=== PATIENT | female | born 1985 | race African-American/Black ===

== ENCOUNTER 2017-11-01 20:41 | Emergency (ER) | payer OTHER ==
[~2017-11-01] VITALS: Ht 170.2 cm; Wt 136.1 kg
[~2017-11-01 20:41] MED LIST: CLEOCIN HCL300 MG PO; CYCLOBENZAPRINE10 M1 PO; MOTRIN800 MG PO; NAPROSYN500 M1 PO; PROAIR HFA8.5 GM INH; TYLENOL WITH C1 EACH PO; ZOFRAN ODT4 MG PO
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
--- NOTE | 2017-11-01 23:32 | CT SCAN REPORT ---
EXAMINATION: CT CERVICAL SPINE WITHOUT CONTRAST CLINICAL INFORMATION: Neck pain. COMPARISON: None. TECHNIQUE: Contiguous helical images of the cervical spine were obtained without IV contrast. Multiplanar reconstructions were performed. FINDINGS: The cervical vertebra are in normal alignment. There is quite minimal disc height loss at C5/C6 with mild anterior osteophyte formation Disc heights and vertebral heights are otherwise well-preserved. There are no fractures. There is no prevertebral soft tissue swelling. There is no cervical lymphadenopathy. The visualized base of the brain is unremarkable. The visualized lung apices are clear. IMPRESSION: No evidence for acute injury to the cervical spine.
--- NOTE | 2017-11-02 | RADIOLOGY REPORT ---
EXAMINATION: SHOULDER 3 VIEWS, LEFT CLINICAL INFORMATION: Left shoulder pain following injury. COMPARISON: None. TECHNIQUE: AP views of the left shoulder were obtained in internal and external rotation. In addition, a Y view was obtained. FINDINGS: There are no fractures or dislocations. The humeral head is seated within a well-formed glenoid. The AC joint is intact. IMPRESSION: Unremarkable left shoulder radiographs.
[2017-11-02] MEDS ORDERED: IBUPROFEN800 M1 PO (00:13)
[2017-11-02] MEDS ORDERED: CYCLOBENZAPRINE10 M1 PO (00:13)
[2017-11-02 00:19] VITALS: BP 110/57
== END 2017-11-02 00:27 ==
LOC: ERH 20:41
DX: S16.1XXA Strain of muscle, fascia and tendon at neck level, initial encounter (principal); V49.40XA Driver injured in collision with unspecified motor vehicles in traffic accident, initial encounter; Y92.410 Unspecified street and highway as the place of occurrence of the external cause; J45.909 Unspecified asthma, uncomplicated
CPT/HCPCS: 73030-LT; 81025